=== PATIENT | male | born 1975 | race Caucasian/White ===

== ENCOUNTER 2020-11-10 13:47 | Outpatient (RCR) | payer OTHER | END 2021-01-04 13:22 | disposition home or self-care (01) | PROVIDERS: ATTEND Nurse Practitioner Family | DX: G51.0 Bell's palsy (principal) ==

== ENCOUNTER 2020-11-30 09:08 | Emergency (ER) | payer OTHER ==
[~2020-11-30] VITALS: Ht 175.3 cm; Wt 81.6 kg
[2020-11-30] MEDS ORDERED: ONDANSETRON 4 MG/2 ML (SDV) Z0FRAN IVP ONE (09:45)
[2020-11-30] MEDS ORDERED: MECLIZINE 25 MG (ANTIVERT) TAB PO ONE (09:45)
[2020-11-30 10:02] LABS: CHLORIDE 106 MMOL/L (98-107); SODIUM 141 MMOL/L (135-145)
[2020-11-30 10:03] LABS: CALCIUM 9.7 MG/DL (8.5-10.1)
[2020-11-30 10:04] LABS: GLUCOSE 101 MG/DL (70-105)
[2020-11-30 10:05] LABS: CARBON DIOXIDE 26 MMOL/L (21-32); POTASSIUM 5.3 MMOL/L (3.6-5.0)
[2020-11-30 10:08] LABS: BUN/CREATININE RATIO 17; CREATININE SERUM 1.02 MG/DL (0.60-1.30); GFR ESTIMATED > 60
[2020-11-30 10:10] LABS: MAGNESIUM 2.2 MG/DL (1.6-2.4)
--- NOTE | 2020-11-30 10:25 | ED General ---
General Chief Complaint: Dizziness/Syncope Stated Complaint: DIZZINESS, BELLS PALSY Nursing Triage Note: PT AMB TO [facility] 6 WITH COMPLAINT OF RIGHT SIDE FACIAL PAIN AND DIZZINESS. WAS DIAGNOSED WITH BELLS PALSY 4 WEEKS AGO. STATES HAD WORSENING DIZZINESS ON SUNDAY AND LAST NIGHT. Nursing Sepsis Screen: No Definite Risk (FREDA NGUYEN STUDENT) History of Present Illness Date Seen by Provider: Nov 30, 2020 Time Seen by Provider: 09:30 Initial Comments This is a 45 year old male presenting to the Emergency Department via ambulation with a chief complaint of worsening Elaine's Palsy and dizziness. He was diagnosed with Elaine's Palsy [address] Griffith and given antivirals and steroids. He finished the steroid doses on or Sunday. He complains of right sided facial droop, pain in front of the right ear, and dizziness. The dizziness started on Sunday but worsened last night. He has difficulty with balance and focusing with his vision. His symptoms are worse in car rides and movement. It's better with laying down. He denies dizziness with looking left and right with his eyes but complains of dizziness when turning his head left and right. He hasn't tried any medications. He denies previous occurrences. He states he has a future appointment with Dr. Griffith to discuss a MRI. Medications: none allergy to medications: none PMHx: skin cancer PSHx: back surgery, tonsils removed (FREDA NGUYEN STUDENT) Allergies and Home Medications Allergies Coded Allergies: No Known Drug Allergies (Unverified , 11/30/20) Patient Home Medication List Home Medication List Reviewed: Yes (KATELYNN GARCIA MD) Review of Systems Review of Systems Constitutional: dizziness, weakness (facial weakness on right) EENTM: ear pain (anterior to right ear ), other (difficulty focusing with vision) Cardiovascular: no symptoms reported Gastrointestinal: no symptoms reported Genitourinary: no symptoms reported Musculoskeletal: no symptoms reported Skin: no symptoms reported Psychiatric/Neurological: No Symptoms Reported Hematologic/Lymphatic: No Symptoms Reported Immunological/Allergic: no symptoms reported (FREDA NGUYEN) Psychiatric/Neurological: Other (Vertigo, nystagmus, right facial weakness) (KATELYNN GARCIA MD) Past Dsdbfge-Jwceoq-Fbvwbj Hx Past Med/Social Hx: Reviewed Nursing Past Med/Soc Hx (KATELYNN GARCIA MD) Patient Social History Alcohol Use: Occasionally Uses Smoking Status: Never a Smoker Recent Infectious Disease Expo: No Recent Hopitalizations: No (FREDA NGUYEN) Immunizations Up To Date Tetanus Booster (TDap): Unknown PED Vaccines UTD: Yes (FREDA NGUYEN) Seasonal Allergies Seasonal Allergies: No (FREDA NGUYEN) Past Medical History Surgeries: Yes Orthopedic, Tonsillectomy Respiratory: No Cardiac: No Neurological: Yes (bells palsy) Genitourinary: No Gastrointestinal: No Musculoskeletal: No Endocrine: No HEENT: No Cancer: No Psychosocial: No Integumentary: No Blood Disorders: No (FREDA NGUYEN) Physical Exam Vital Signs Vital Signs - First Documented 11/30/20 09:13 Pulse 74 Resp 15 B/P (MAP) 157/96 (116) Pulse Ox 100 O2 Delivery Room Air (KATELYNN GARCIA MD) Vital Signs Capillary Refill : Less Than 3 Seconds (FREDA NGUYEN) Height, Weight, BMI Height: '" Weight: lbs. oz. kg; 26.00 BMI Method: General Appearance: No Apparent Distress, WD/WN Eyes: Bilateral Eye Other (nystagmus - more prominant beat to the left) HEENT: PERRL/EOMI, TMs Normal Respiratory: Chest Non Tender, Lungs Clear, Normal Breath Sounds, No Accessory Muscle Use, No Respiratory Distress Cardiovascular: Regular Rate, Rhythm Neurologic/Psychiatric: Alert, Oriented x3, Facial Droop (FREDA NGUYEN) Progress/Results/Core Measures Suspected Sepsis Recent Fever Within 48 Hours: No Infection Criteria Present: None New/Unexplained Altered Menta: No Sepsis Screen: No Definite Risk SIRS Temperature: Pulse: 74 Respiratory Rate: 15 Blood Pressure 157 /96 Mean: 116 Laboratory Tests 11/30/20 09:46: Creatinine 1.02 (FREDA NGUYEN) Results/Orders Lab Results Laboratory Tests Test 11/30/20 09:46 Range/Units Sodium Level 141 135-145 MMOL/L Potassium Level 5.3 H 3.6-5.0 MMOL/L Chloride Level 106 98-107 MMOL/L Carbon Dioxide Level 26 21-32 MMOL/L Anion Gap 9 5-14 MMOL/L Blood Urea Nitrogen 17 7-18 MG/DL Creatinine 1.02 0.60-1.30 MG/DL Estimat Glomerular Filtration Rate > 60 BUN/Creatinine Ratio 17 Glucose Level 101 70-105 MG/DL Calcium Level 9.7 8.5-10.1 MG/DL Magnesium Level 2.2 1.6-2.4 MG/DL (KATELYNN GARCIA MD) My Orders Orders - KATELYNN GARCIA MD Ondansetron Injection (Zofran Injectio (11/30/20 09:45) Meclizine Tablet (Antivert Tablet) (11/30/20 09:45) Basic Metabolic Panel (11/30/20 09:37) Magnesium (11/30/20 09:37) Mri Brain & Iac W/Wo Contrast (11/30/20 10:55) Gadobutrol Inj (Radiology) (Gadavist Inj (11/30/20 12:30) (KATELYNN GARCIA MD) Medications Given in ED Current Medications Medications Dose Ordered Sig/Brock Route Start Time Stop Time Status Last Admin Dose Admin Gadobutrol 10 mmol ONCE ONCE IV 11/30/20 12:30 11/30/20 12:35 DC 11/30/20 12:32 8 MMOL Meclizine HCl 25 mg ONCE ONCE PO 11/30/20 09:45 11/30/20 09:46 DC 11/30/20 09:42 25 MG Ondansetron HCl 8 mg ONCE ONCE IVP 11/30/20 09:45 11/30/20 09:46 DC 11/30/20 09:42 8 MG (KATELYNN GARCIA MD) Vital Signs/I&O 11/30/20 11/30/20 09:13 14:05 Pulse 74 74 Resp 15 15 B/P (MAP) 157/96 (116) 138/86 (116) Pulse Ox 100 100 O2 Delivery Room Air Room Air (KATELYNN GARCIA MD) Vital Signs/I&O Capillary Refill : Less Than 3 Seconds (FREDA NGUYEN MED STUDENT) Blood Pressure Mean: 116 Progress Note : Time: 09:50 Progress Note - The patient was administered Meclizine and Ondansetron. The Sherrill-Hallpike maneuver and Eply maneuver were performed. The patient tolerated the treatment well but still reported dizziness with movement. Dr. Garcia spoke with the nurse for the PRIMARY THERAPIST carton packaging machine operator with Dr. Griffith who agreed with obtaining an MRI. The patient has decided to wait and do an inhouse MRI at 16:45. (FREDA NGUYEN MED STUDENT) Progress Note : Progress Note Elliot-Hallpike was performed and was grossly negative. Because symptoms are present on the right with Elaine's palsy aPain, the Jacobo maneuver was initiated on the right side. This ultimately did not improve his dizziness. He did receive meclizine which reduced the dizziness. Jacobo maneuver is not likely to help in the situation as the dizziness is likely A viral mediated vestibulitis that is also likely responsible for the Elaine's palsy. I discussed the situation with Vane Verma, nurse practitioner with Dr. Griffith. Patient has already received 2 rounds of steroids and completed a round of antivirals. We do not believe there is any benefit to continuing with more of the same treatments. We did agree that MRI is the next best tool to evaluate his symptoms and ensure there is not a greater neurologic pathology contributing to his symptoms. MRI was available and was obtained. It demonstrated inflammatory changes of the 7th cranial nerve but no other pathologies. Patient was referred to physical therapy for vestibular exercises. He will have follow-up with Dr. Griffith in the clinic. (KATELYNN GARCIA MD) Diagnostic Imaging Diagonstic Imaging: MRI Plain Films/CT/US/NM/MRI: head Comments NAME: RANDY CAR [facility] REC#: [id number] PT STATUS: DEP ER : 1975 PHYSICIAN: KATELYNN GARCIA MD ADMIT DATE: 11/30/20/ER Signed Date of Exam:11/30/20 MRI BRAIN & IAC W/WO CONTRAST EXAM: MRI BRAIN IAC W/WO CONTRAST INDICATION: Vertigo. Elaine's palsy. Nystagmus. COMPARISON: None. FINDINGS: Dedicated sequences through the level of the internal auditory canals demonstrates abnormal enhancement in the lateral aspect of the internal auditory canal measuring up to 0.4 x 0.3 cm. No abnormal enhancement or mass in the left internal auditory canal or trigeminal nerves. No other abnormal signal or enhancement. No restricted water diffusion. No hemosiderin deposition or evidence of intracranial hemorrhage. Normal morphology of the major midline structures, sella and posterior fossa. No hydrocephalus or extra-axial fluid collections. The orbits are negative on this nondedicated exam. Paranasal sinuses and mastoids are unremarkable. Normal bone marrow signal. IMPRESSION: 1. Abnormal enhancement in lateral aspect of the right internal auditory canal, typical of facial nerve enhancement seen in Elaine's palsy. 2. MRI of the brain is otherwise normal. Dictated by: Dictated on workstation # [id number] Dict: 11/30/20 1259 Trans: 11/30/201705 [facility] [id number] Interpreted by: VERN MOOER MD Electronically signed by: VERN MOORE MD 11/30/201705 Reviewed: Reviewed by Me (KATELYNN GARCIA MD) Departure Impression Primary Impression: Elaine's palsy Additional Impressions: Vestibulitis of ear Qualified Codes: H83.01 - Labyrinthitis, right ear Vertigo Disposition: HOME, SELF-CARE Condition: Stable Departure-Patient Inst. Decision time for Depature: 13:54 (KATELYNN GARCIA MD) Referrals: NO,LOCAL PHYSICIAN (PCP/Family) Primary Care Physician Patient Instructions: Elaine's Palsy, Vertigo (a Type of Dizziness) (DC) Add. Discharge Instructions: Follow-up with Dr. Griffith's office to review MRI and talk about further treatment options. Dr. Garcia will discuss with Dr. Griffith staff today. If more medications are indicated for your condition, we will call you and notify you. You may try the Jacobo maneuver in each direction to treat the vertigo. If this is helpful, you may repeat as many times as necessary in the future. Call with any questions or concerns. Return to the emergency room for worsening symptoms or any new neurologic symptoms such as difficulty with speech, vision changes, weakness of a limb, etc. You may use meclizine or other szwm-beh-wloedzj motion sickness medications to treat the dizziness. Follow package instructions. All discharge instructions reviewed with patient and/or family. Voiced understanding. Work/School Note: Work Release Form Date Seen in the Emergency Department: Nov 30, 2020 Return to Work: Dec 01, 2020 Other Restrictions Listed Below: Avoid activities with frequent or rapid head movement or up-and-down motion Medical Student Attestation and Attending Note: I have personally interviewed and examined this patient along with Freda Nguyen, MS 3. I have reviewed student documentation including history, physical, and assessments. I agree with the documentation except where otherwise noted. Exam: General: Alert, oriented, no acute distress, well developed HEENT: Right-sided facial weakness, Tympanic membranes normal Heart: Regular rate and rhythm without murmur Lungs: Clear to auscultation bilaterally with normal effort Abdomen: Soft, nontender, nondistended, normal bowel sounds Neuropsych: Alert, oriented, Right sided facial weakness. No other focal deficits. Nystagmus with more prominent beat with leftward gaze. Skin: Warm and dry without rashes (KATELYNN GARCIA MD) Copy Copies To 1: MERVIN GRIFFITH MD, ELIZABETH X MED STUDENT Nov 30, 2020 10:25 KATELYNN GARCIA MD Nov 30, 2020 13:57
[2020-11-30] MEDS ORDERED: GADOBUTROL 10 MMOL/10 ML (GADAVIST) VIAL IV ONE (12:30)
--- NOTE | 2020-11-30 13:26 | Diagnostic Imaging Report ---
EXAM: MRI BRAIN IAC W/WO CONTRAST INDICATION: Vertigo. Elaine's palsy. Nystagmus. COMPARISON: None. FINDINGS: Dedicated sequences through the level of the internal auditory canals demonstrates abnormal enhancement in the lateral aspect of the internal auditory canal measuring up to 0.4 x 0.3 cm. No abnormal enhancement or mass in the left internal auditory canal or trigeminal nerves. No other abnormal signal or enhancement. No restricted water diffusion. No hemosiderin deposition or evidence of intracranial hemorrhage. Normal morphology of the major midline structures, sella and posterior fossa. No hydrocephalus or extra-axial fluid collections. The orbits are negative on this nondedicated exam. Paranasal sinuses and mastoids are unremarkable. Normal bone marrow signal. IMPRESSION: 1. Abnormal enhancement in lateral aspect of the right internal auditory canal, typical of facial nerve enhancement seen in Elaine's palsy. 2. MRI of the brain is otherwise normal. Dictated by: Dictated on workstation # [id number]
[2020-11-30 14:05] VITALS: BP 138/86
== END 2020-11-30 14:05 | disposition home or self-care (01) ==
LOC: EDUNIT# 09:08 → ER 09:09
DX: G51.0 Bell's palsy (principal); H83.01 Labyrinthitis, right ear; R42 Dizziness and giddiness; Z85.828 Personal history of other malignant neoplasm of skin
CPT/HCPCS: 36415; 70553; 80048; 83735

== ENCOUNTER → 2021-07-27 | Outpatient (CLI) | payer OTHER ==
--- NOTE | 2021-07-27 16:30 | Diagnostic Imaging Report ---
EXAMINATION: Right foot radiographs, 3 views. COMPARISON: None. HISTORY: 46-year-old male, right foot pain. FINDINGS: There is no identified acute fracture. There is no radiopaque foreign body. There is no tibiotalar joint effusion. The joint spaces are well preserved. IMPRESSION: Unremarkable radiographs of the right foot. Dictated by: Dictated on workstation # [id number]
--- NOTE | 2021-07-27 16:30 | Diagnostic Imaging Report ---
INDICATION: Left hip pain. EXAMINATION: AP and frog-leg views of left hip were obtained. FINDINGS: Minimal calcification is seen adjacent to the left ischial process. No acute fracture or dislocation is identified. No abnormal lytic or sclerotic focus is seen, and there is no radiopaque foreign body. IMPRESSION: No acute abnormality although there may be avulsion from left inferior ischial process of indeterminate age. Dictated by: Dictated on workstation # [id number]
== END ==
LOC: RAD 15:52
PROVIDERS: ATTEND Family Medicine
DX: M25.552 Pain in left hip (principal); M25.571 Pain in right ankle and joints of right foot; M79.671 Pain in right foot
CPT/HCPCS: 73502; 73630

== ENCOUNTER 2021-10-18 15:40 | Outpatient (RCR) | payer OTHER | END 2021-11-11 | disposition home or self-care (01) | PROVIDERS: ATTEND Nurse Practitioner Family | DX: M16.12 Unilateral primary osteoarthritis, left hip (principal) ==

== ENCOUNTER → 2021-11-09 | Outpatient (CLI) | payer OTHER ==
--- NOTE | 2021-11-09 15:23 | Diagnostic Imaging Report ---
INDICATION: No prior injury. Chronic pain and low back pain EXAMINATION: MRI of the left hip without contrast 11/09/2021. FINDINGS: There is a prominent subchondral cyst within the superior lateral acetabulum. There is mild narrowing and spurring within the hip joint. There is a small subchondral cystic area within the anterior femoral head/neck junction, likely a synovial pit which can be seen in patients with impingement type symptoms. The labrum is poorly characterized without contrast. No obvious abnormality is appreciated. There are no fractures or dislocations. The opposite hip is grossly unremarkable. The hamstrings tendon origins are intact. The visualized iliopsoas musculature and tendons are unremarkable. The tendinous insertions at the greater trochanters are intact. There is focal edema along the lateral border of the left adductor sammy muscle overlying the posterior border of the proximal left femur, likely due to a small partial tear. This is incompletely imaged on axial imaging. There is no retraction of the distal tendon appreciated. Findings could be due to a focal strain versus a partial tear with mild intramuscular hematoma. IMPRESSION: Abnormal signal intensity along the distal lateral border of the adductor sammy on the left with associated edema, likely due to a strain or partial tear. This is incompletely imaged along its distal aspect. If symptoms persist, repeat imaging to include the distal aspect of the abnormality is recommended. The remaining visualized structures are intact with degenerative findings in the left hip noted. Dictated by: Dictated on workstation # [id number]
--- NOTE | 2021-11-09 15:33 | Diagnostic Imaging Report ---
PROCEDURE: MRI lumbar spine. TECHNIQUE: Multiplanar, multisequence MRI of the lumbar spine was performed without contrast. INDICATION: Back pain. COMPARISON: None available. FINDINGS: Five lumbar-type vertebral bodies are assumed. Very minimal retrolisthesis of L4 on L5, measuring approximately 2 mm. No additional anterolisthesis or retrolisthesis. Besides endplate degenerative changes, vertebral body heights are well maintained. Degenerative marrow edema and fatty endplate degenerative changes are noted at the L5/S1 level. Bone marrow signal intensity is otherwise unremarkable. The conus medullaris is unremarkable and terminates at the appropriate location. The paraspinal soft tissues are unremarkable. T12/L1: No significant central canal or neural foraminal stenosis. L1/L2: Mild facet joint degenerative changes. No significant central canal or neural foraminal stenosis. L2/L3: Mild facet joint degenerative changes. No significant central canal or neural foraminal stenosis. L3/L4: Mild facet joint degenerative changes. There is resulting mild bilateral neural foraminal stenosis without significant central canal stenosis. L4/L5: Minimal retrolisthesis. Minimal disc desiccation. Mild facet joint degenerative changes and ligamentum flavum hypertrophy. Tiny diffuse disc bulge. There is resulting minimal trefoil-type central canal stenosis with yviguobs-my-ojjyfj bilateral neural foraminal stenosis. L5/S1: Mild facet joint degenerative changes. Moderate disc space height loss with endplate degenerative changes. Diffuse disc osteophyte complex, most prominent within the left foraminal location. There is resulting slight effacement of the left lateral recess. Qmqrgzjj-nx-vguiam bilateral neural foraminal stenosis. IMPRESSION: No acute osseous abnormality with qgmt-vh-[id number] multilevel degenerative changes as described above. These degenerative changes are by far greatest at L4/L5 and L5/S1 where there is resulting relatively high-grade neural foraminal stenosis. Dictated by: Dictated on workstation # [id number]
== END ==
LOC: RAD 14:00
PROVIDERS: ATTEND Nurse Practitioner Family
DX: M47.816 Spondylosis without myelopathy or radiculopathy, lumbar region (principal); M47.817 Spondylosis without myelopathy or radiculopathy, lumbosacral region; M48.061 Spinal stenosis, lumbar region without neurogenic claudication; M48.07 Spinal stenosis, lumbosacral region; M24.28 Disorder of ligament, vertebrae; M25.78 Osteophyte, vertebrae
CPT/HCPCS: 72148; 73721